=== PATIENT | female | born 1940 | race Caucasian/White ===

== ENCOUNTER 2023-12-09 09:52 | Emergency (ER) | payer MEDICARE, OTHER, SELFPAY ==
--- NOTE | 2023-12-09 10:15 | ED.GENMED ---
History of Present Illness
General
Chief Complaint: Extremity Pain (non-traumatic)
Time Seen by Provider: 12/09/23 10:01
History of Present Illness
History of Present Illness:
83-year-old female with history of atrial fibrillation on Eliquis, high blood pressure presenting from nursing facility for left shoulder pain. Patient arrives by medics. Per facility, no trauma. Patient complaining of left shoulder and humeral
pain. Patient herself denies any fall. Patient otherwise denies chest pain, difficulty breathing, abdominal pain. Patient with strong smell of urine upon arrival, denies dysuria. Patient disoriented to time upon arrival, reported baseline
confusion. Denies numbness or tingling to her arm. Denies additional acute medical complaints.
Past History
Past History
ED Past Medical History: Arrthythmia (AFib), Cancer (Endometrial), GERD, HTN, Hypercholesterolemia and Other (Vertigo, gout, degenerative disc disease, dementia carpal tunnel syndrome, osteoarthritis, peripheral neuropathy of unknown etiology)
ED Past Surgical History: Gynecological (FRANCINE/BSO 2001), Orthopedic (Right total knee replacement) and Other (Vein stripping, bilateral cataract extractions)
Social History
Tobacco: Non-smoker
Alcohol: Occasional
Personal:
Living: with family
Employment: Retired
Family History
Family History: Early CAD
Phy Exam
Physical Exam
Physical Exam:
General: Well-appearing, no clinical signs of dehydration, nontoxic and in no acute distress
HEENT: protecting airway
Neck: appears supple
CV: Irregularly irregular rhythm, rate controlled
Resp: No accessory muscle use, no increased work of breathing, lungs clear to auscultation bilaterally
Abd: Soft and non-distended, no tenderness to palpation, normal bowel sounds
Extremities: No deformity or swelling to left upper extremity. No signs of trauma. Generalized tenderness to the left shoulder joint and proximal humeral region. No erythema or warmth. Limited range of motion secondary to pain. Distal sensation
intact. Pulses intact
Neuro: alert, no focal neurologic deficit
: Malodorous urine
Rectal: deferred
Psych: Normal affect
Skin: Intact
Course
Orders/Labs/Results
Orders:
Orders
12/09/23 10:13
Humerus, Left 2 Views [CR Humerus - Left Min 2 Views*] Urgent
Comment:
Reason For Exam: pain, no trauma
12/09/23 10:14
Electrocardiogram (*1) Urgent
Reason for Study: Other
Other Reason for Exam: fib
EKG- Treatment ONCE
12/09/23 10:29
Complete Blood Count/With Diff Urgent
Comprehensive Metabolic Panel Urgent
Urinalysis Reflex To Culture Urgent
Date Specimen was Collected: 12/09/23
Time Specimen was Collected: 10:19
Urine Microscopic Reflex Cult Urgent
12/09/23 11:20
0.9% Sodium Chloride 1000 ml [Nss] 1,000 ml IV BOLUS
Abnormal Lab Results
12/09/23
10:29
WBC 12.3 H 10^3/uL
(4.8-10.8)
MPV 10.6 H fL
(7.4-10.4)
Abs Immat Gran (auto) 0.1 H 10^3/uL
(0-0.05)
Absolute Neuts (auto) 10.4 H 10^3/uL
(1.4-6.5)
Absolute Lymphs (auto) 0.6 L 10^3/uL
(1.2-3.4)
Absolute Monos (auto) 1.3 H 10^3/uL
(0.1-0.6)
Neutrophils % 84.5 H %
(42.2-75.2)
Lymphocytes % 4.5 L %
(20.5-51.1)
Monocytes % 10.3 H %
(1.7-9.3)
Creatinine 0.5 L mg/dL
(0.6-1.0)
Glucose 138 H mg/dl
(70-99)
Total Bilirubin 2.0 H mg/dl
(0.2-1.3)
Total Protein 6.1 L g/dl
(6.3-8.2)
Urine Ketones 3+ A
(Negative)
Ur Occult Blood Reflex 2+ A
(Negative)
Urine Urobilinogen 2+ A
(Neg - 1+)
Urine RBC 11-15 A /HPF
(0-2)
Urine Bacteria (Reflex) Few A
(Negative)
12/09/23 10:29
12/09/23 10:29
Vital Signs
Initial and Last Documented VS:
Initial Vital Signs
Pulse Resp Pulse Ox
107 12 97
12/09/23 10:06 12/09/23 10:06 12/09/23 10:06
Last Documented Vital Signs
Temp Pulse Resp BP Pulse Ox
98 F 91 17 152/93 95
12/09/23 10:21 12/09/23 12:02 12/09/23 12:02 12/09/23 12:02 12/09/23 12:00
MDM/Problems Addressed
MDM/Problems Addressed:
83-year-old female with history of A-fib on Eliquis and hypertension presenting to the emergency department with left upper extremity pain, without reported trauma. Vital signs significant for mild tachycardia.
On exam, patient in no acute distress or discomfort. Overall benign examination of the left upper extremity, without any signs of trauma. Generalized tenderness to the left shoulder and humeral region. No neurovascular compromise. No infectious
findings. Suspect arthritic component. Will screen with x-ray imaging. Patient with malodorous urine. Suspect UTI. Will screen with laboratory analysis and urinalysis. Otherwise unremarkable examination, hemodynamically stable
12:20 - Urine does show some bacteria, some RBCs. For this reason we will treat as a UTI, again malodorous. CBC with mild leukocytosis. Will start patient on an antibiotic. Labs otherwise unremarkable. X-ray without fracture or malalignment,
consistent with degenerative changes. Family is at bedside, updated. They note that patient is new to the facility, has been doing new exercises, likely overuse and musculoskeletal pain. At this time feel patient is stable for discharge back to
her facility. Family in agreement. Will provide transportation.
*Critical Care Note
Total Time (30-74mins, 75-104mins- exclusive of procedures): Not Applicable
ED Attending Note
-
Portions of this chart may have been created with voice recognition software.� Occasional wrong word or��sound alike� substitutions may have occurred due to the inherent limitations of voice recognition software.
Discharge Plan
Departure
Prescriptions:
No Action
Eliquis 5 MG tablet
5 mg PO BID
losartan 100 mg Tablet
100 mg PO HS Qty: 30 0RF
Referrals:
Lionel Ordaz MD [Family Provider] -
Interventions
Interventions:
*Risk Screen - Suicide Last Done: 12/09/23 10:55
*General Assessment Last Done: 12/09/23 11:50
*Neglect/Abuse Screening Last Done: 12/09/23 10:26
ED- Fall Risk Assessment Last Done: 12/09/23 10:26
*ED COVID-19 Vaccine History Last Done: 12/09/23 10:26
ED-Skin Assessment Last Done: 12/09/23 11:49
ED-Peripheral Vascular Assessment Last Done: 12/09/23 11:49
ED-Musculoskeletal Assessment Last Done: 12/09/23 10:27
Discharge Date and Time
Print Language: [id number]
[2023-12-09 10:21] VITALS: BP 130/47
[2023-12-09 10:45] LABS: Urine Albumin Trace (Neg - Trace); Urine Bilirubin Negative (Negative); Urine Character Clear (Clear); Urine Color Yellow; Urine Glucose Negative (Negative); Urine Ketone 3+ (Negative); Urine Leukocyte Negative (Negative); Urine Nitrite Negative (Negative); Urine Occult Blood 2+ (Negative); Urine Urobilinogen 2+ (Neg - 1+)
[2023-12-09 10:46] LABS: % Basophils 0.2 % (0-2); % Immature Granulocytes 0.5 % (0-0.5); % Lymphocytes 4.5 % (20.5-51.1); % Monocytes 10.3 % (1.7-9.3); % Neutrophils 84.5 % (42.2-75.2); Absolute Immature Granulocytes 0.1 10^3/uL (0-0.05); Absolute Lymphocytes 0.6 10^3/uL (1.2-3.4); Absolute Monocytes 1.3 10^3/uL (0.1-0.6); Absolute Neutrophils 10.4 10^3/uL (1.4-6.5); Hematocrit 39.3 % (37.0-47.0); Hemoglobin 13.2 g/dL (12.0-16.0); Mean Corp Hgb Conc. 33.6 g/dL (33.0-37.0); Mean Corpuscular Hgb 30.8 pg (27.0-31.0); Mean Corpuscular Volume 91.6 fL (81.0-99.0); Mean Platelet Volume 10.6 fL (7.4-10.4); Nucleated Red Blood Cells % 0 %; Platelet Count 173 10^3/uL (130-400); Red Blood Cell Count 4.29 10^6/uL (4.20-5.40); Red Cell Dist. Width 13.5 % (11.5-14.5); White Blood Cell Count 12.3 10^3/uL (4.8-10.8)
[2023-12-09 10:56] LABS: Urine Bacteria Few (Negative); Urine White Cell 0-2 /HPF (0-5)
[2023-12-09 11:00] VITALS: BP 156/112
[2023-12-09 11:22] LABS: ALT (SGPT) 31 U/L (0-35); AST (SGOT) 36 U/L (14-36); Albumin 3.7 g/dl (3.5-5.0); Alkaline Phosphatase 82 U/L (38-126); Blood Urea Nitrogen 17 mg/dl (7-17); Calcium 8.9 mg/dl (8.4-10.2); Carbon Dioxide 27 mmol/L (22-30); Chloride 101 mmol/L (98-107); Glucose 138 mg/dl (70-99); Potassium 3.8 mmol/L (3.5-5.1); Sodium 135 mmol/L (135-145); Total Protein 6.1 g/dl (6.3-8.2); eGFR > 60.00
[2023-12-09] MEDS: NSS 1000 IV (11:29)
[2023-12-09 12:02] VITALS: BP 152/93
[2023-12-09 13:00] VITALS: BP 153/91
== END 2023-12-09 14:46 | disposition home or self-care (01) ==
LOC: EMR 09:52
PROVIDERS: EMERGENCY PHYSICIAN Student in an Organized Health Care Education/Training Program; FAMILY PHYSICIAN Internal Medicine
DX: M25.512 Pain in left shoulder (principal); I48.91 Unspecified atrial fibrillation; K21.9 Gastro-esophageal reflux disease without esophagitis; I10 Essential (primary) hypertension; E78.00 Pure hypercholesterolemia, unspecified; F03.90 Unspecified dementia, unspecified severity, without behavioral disturbance, psychotic disturbance, mood disturbance, and anxiety; M19.90 Unspecified osteoarthritis, unspecified site; Z79.01 Long term (current) use of anticoagulants; Z82.49 Family history of ischemic heart disease and other diseases of the circulatory system; Z90.710 Acquired absence of both cervix and uterus; Z90.722 Acquired absence of ovaries, bilateral
CPT/HCPCS: 99283; 96360; 73060; 80053; 81003; 81015; 85025; 93005

== ENCOUNTER → 2024-01-23 10:52 | Outpatient (REF) | payer MEDICARE, SELFPAY ==
[2024-01-23 13:30] LABS: % Basophils 0.6 % (0-2); % Eosinophils 0.4 % (0-6); % Immature Granulocytes 0.4 % (0-0.5); % Monocytes 12.7 % (1.7-9.3); % Neutrophils 68.9 % (42.2-75.2); Absolute Lymphocytes 1.1 10^3/uL (1.2-3.4); Absolute Monocytes 0.9 10^3/uL (0.1-0.6); Absolute Neutrophils 4.6 10^3/uL (1.4-6.5); Hematocrit 34.6 % (37.0-47.0); Hemoglobin 11.2 g/dL (12.0-16.0); Mean Corp Hgb Conc. 32.4 g/dL (33.0-37.0); Mean Corpuscular Hgb 30.2 pg (27.0-31.0); Mean Corpuscular Volume 93.3 fL (81.0-99.0); Mean Platelet Volume 10.6 fL (7.4-10.4); Nucleated Red Blood Cells % 0 %; Platelet Count 258 10^3/uL (130-400); Red Blood Cell Count 3.71 10^6/uL (4.20-5.40); White Blood Cell Count 6.7 10^3/uL (4.8-10.8)
[2024-01-23 14:24] LABS: Blood Urea Nitrogen 15 mg/dl (7-17); Calcium 8.8 mg/dl (8.4-10.2); Carbon Dioxide 28 mmol/L (22-30); Chloride 107 mmol/L (98-107); Glucose 97 mg/dl (70-99); Sodium 135 mmol/L (135-145); eGFR > 60.00
[2024-01-23 14:41] LABS: TSH Reflex To Free T4 1.93 uIU/ml (0.47-4.68)
[2024-01-24 08:34] LABS: Glycohemoglobin (HgbA1c) 5.8 % (4.0-5.6)
== END ==
LOC: OLABSOL 10:52
DX: D64.9 Anemia, unspecified (principal); R94.4 Abnormal results of kidney function studies; E55.9 Vitamin D deficiency, unspecified; Z13.228 Encounter for screening for other metabolic disorders; Z51.81 Encounter for therapeutic drug level monitoring; R73.01 Impaired fasting glucose
CPT/HCPCS: 36415; 80048; 83036; 84443; 85025

== ENCOUNTER → 2025-01-07 10:15 | Outpatient (REF) | payer OTHER, SELFPAY ==
[2025-01-07 12:37] LABS: Hematocrit 37.1 % (37.0-47.0); Hemoglobin 12.0 g/dL (12.0-16.0); Mean Corp Hgb Conc. 32.3 g/dL (33.0-37.0); Mean Corpuscular Volume 97.1 fL (81.0-99.0); Nucleated Red Blood Cells % 0 %; Platelet Count 202 10^3/uL (130-400); Red Cell Dist. Width 12.8 % (11.5-14.5)
[2025-01-07 12:57] LABS: Blood Urea Nitrogen 24 mg/dl (7-17); Calcium 8.7 mg/dl (8.4-10.2); Carbon Dioxide 33 mmol/L (22-30); Chloride 105 mmol/L (98-107); Glucose 86 mg/dl (70-99); Potassium 4.2 mmol/L (3.5-5.1); Sodium 141 mmol/L (135-145); eGFR > 60.00
== END ==
LOC: OLABSOL 10:15
PROVIDERS: ATTENDING PHYSICIAN Nurse Practitioner Adult Health
DX: R94.4 Abnormal results of kidney function studies (principal); D64.9 Anemia, unspecified
CPT/HCPCS: 36415; 80048; 83880; 85025

== ENCOUNTER → 2025-02-20 10:48 | Outpatient (REF) | payer OTHER, SELFPAY ==
[2025-02-20 13:01] LABS: Blood Urea Nitrogen 21 mg/dl (7-17); Calcium 9.0 mg/dl (8.4-10.2); Carbon Dioxide 32 mmol/L (22-30); Chloride 106 mmol/L (98-107); Glucose 88 mg/dl (70-99); Potassium 4.0 mmol/L (3.5-5.1); Sodium 140 mmol/L (135-145); eGFR > 60.00
== END ==
LOC: OLABP 10:48
PROVIDERS: ATTENDING PHYSICIAN Nurse Practitioner Adult Health
DX: I11.0 Hypertensive heart disease with heart failure (principal); I50.22 Chronic systolic (congestive) heart failure
CPT/HCPCS: 36415; 80048; 83880

== ENCOUNTER → 2025-03-20 10:40 | Outpatient (REF) | payer OTHER, SELFPAY ==
[2025-03-20 14:16] LABS: C-Reactive Protein 30.80 mg/L (0.0-10.00)
[2025-03-20 16:27] LABS: Uric Acid 5.8 mg/dl (2.5-6.2)
== END ==
LOC: OLABSOL 10:40
PROVIDERS: ATTENDING PHYSICIAN Nurse Practitioner Adult Health
DX: M10.9 Gout, unspecified (principal)
CPT/HCPCS: 36415; 84550; 86140

== ENCOUNTER → 2025-04-23 07:13 | Outpatient (REF) | payer OTHER, SELFPAY ==
[2025-04-23 18:50] LABS: Urine Character Clear (Clear)
== END ==
LOC: OLABSOL 07:13
PROVIDERS: ATTENDING PHYSICIAN Nurse Practitioner Adult Health
DX: N39.0 Urinary tract infection, site not specified (principal)
CPT/HCPCS: 81003; 87086

== ENCOUNTER → 2025-05-04 10:58 | Outpatient (REF) | payer OTHER, SELFPAY ==
[2025-05-05 16:52] LABS: Urine Character Clear (Clear)
== END ==
LOC: OLABSOL 10:58
PROVIDERS: ATTENDING PHYSICIAN Nurse Practitioner Adult Health
DX: I10 Essential (primary) hypertension (principal)
CPT/HCPCS: 81003; 87086

== ENCOUNTER → 2025-05-06 09:33 | Outpatient (REF) | payer OTHER, SELFPAY ==
[2025-05-06 10:30] LABS: Hematocrit 39.3 % (37.0-47.0); Hemoglobin 12.7 g/dL (12.0-16.0); Mean Corp Hgb Conc. 32.3 g/dL (33.0-37.0); Mean Corpuscular Volume 95.4 fL (81.0-99.0); Nucleated Red Blood Cells % 0 %; Platelet Count 216 10^3/uL (130-400); Red Cell Dist. Width 13.0 % (11.5-14.5)
[2025-05-06 10:45] LABS: Blood Urea Nitrogen 19 mg/dl (7-17); Calcium 9.0 mg/dl (8.4-10.2); Carbon Dioxide 34 mmol/L (22-30); Chloride 102 mmol/L (98-107); Glucose 93 mg/dl (70-99); Magnesium 1.4 mg/dl (1.6-2.3); Potassium 3.9 mmol/L (3.5-5.1); Sodium 138 mmol/L (135-145); eGFR > 60.00
[2025-05-06 11:13] LABS: TSH 1.45 uIU/ml (0.47-4.68)
== END ==
LOC: OLABSOL 09:33
PROVIDERS: ATTENDING PHYSICIAN Nurse Practitioner Adult Health
DX: I10 Essential (primary) hypertension (principal)
CPT/HCPCS: 36415; 80048; 83735; 84443; 85025